=== PATIENT | male | born 1970 | race Two or more races ===

== ENCOUNTER 2017-10-03 11:55 | Emergency (ER) | payer SELFPAY ==
[2017-10-03] MEDS ORDERED: Ondansetron 4 MG/2 ML SDV IVPUSH ONE (12:02)
[2017-10-03] MEDS ORDERED: Morphine 2 MG/ML Syringe IVPUSH ONE (12:03)
[2017-10-03 12:37] LABS: CHLORIDE,CL 105 mmol/L (98-107); SODIUM,NA 143 mmol/L (136-148)
[2017-10-03] MEDS ORDERED: Pantoprazole 40 MG Vial IVPUSH ONE (14:00)
[2017-10-03] MEDS ORDERED: Alum Hydrox/Mag Hydrox/Simeth 15 ML, Metoclopramide 5 MG, Lidocaine 2% 5 ML PO ONE ×3 (14:01)
--- NOTE | 2017-10-03 14:31 | EDM.PDOC ---
ED HPI GENERAL MEDICAL PROBLEM - General Chief Complaint: Abdominal Pain Stated Complaint: CHEST PAIN AND HARD TO BREATHE Time Seen by Provider: 10/03/17 11:55 Source of Information: Reports: Patient, Family History Limitations: Reports: No Limitations - History of Present Illness INITIAL COMMENTS - FREE TEXT/NARRATIVE: HISTORY AND PHYSICAL: History of present illness: [Patient is brought to the emergency room by his son with complaints of sudden onset epigastric pain. Patient is primarily Telugu-speaking but he does understand some [place]an and his son serves as an outside upholsterer. Pain began approximately 10 minutes prior to arrival in the emergency room. He describes the pain as being in his upper abdomen, and as a sharp shooting pain and as a "tearing" sensation. He denies any radiation of the pain into his chest lower abdomen flank and back. He is otherwise well and denies any medical conditions. He checked his blood pressure couple of weeks ago at a local store and found it to be mildly elevated. He does not remember the reading. No history of hypertension or prescribed medications for his symptoms. The pain has been constant, and increases position changes and increased abdominal pressure. Denies blood in his stools no difficulty urinating, constipation or diarrhea. He was otherwise in his normal state of good health prior to these symptoms beginning. Reports a history of stomach ulcer. Patient and son are in the [facility] and will be returning to [place] tomorrow. Review of systems: As per history of present illness and below otherwise all systems reviewed and negative. Past medical history: As per history of present illness and as reviewed below otherwise noncontributory. Surgical history: As per history of present illness and as reviewed below otherwise noncontributory. Social history: No reported history of drug or alcohol abuse. Family history: As per history of present illness and as reviewed below otherwise noncontributory. Physical exam: HEENT: Atraumatic, normocephalic. Mucous membranes are pink and moist. Neck supple, no lymphadenopathy. Lungs: Clear to auscultation, breath sounds equal bilaterally, chest nontender with palpation. Heart: S1S2, regular rate and rhythm. No murmur gallop click or rub. Abdomen: Bowel sounds are normoactive throughout. Soft, nondistended. Patient is tender over the epigastrium with palpation. Negative for masses, bruit, guarding or rebound. Negative for costovertebral tenderness. Pelvis: Stable nontender. Genitourinary: Deferred. Rectal: Deferred. Extremities: Atraumatic, negative for cords or calf pain. Swelling or some cyanosis. Neurovascular unremarkable. Neuro: Awake, alert, oriented. Motor and sensory unremarkable throughout. Exam nonfocal. Diagnostics: [CBC, CMP, UA, amylase, lipase, EKG, troponin, H Pylori, gallbladder ultrasound] Therapeutics: [MS 2mg IV, Zofran 4mg IV, GI cocktail, Protonix 40 mg] Impression: [H. Pylori infection epigastric pain] Plan: [Ultrasound shows diffuse fatty infiltration of the liver. Normal gallbladder and common bile duct. coffee machine technician reports good visualization of the aorta and no aneurysm present. Normal vasculature. Troponin and UA are negative. White blood cell 12.4, AST 48, ALT 105. H. Pylori test is positive. Referral given to primary care. Rx's given for omeprazole 20mg (#60) si po BID 0 RF's , clarithromycin 500mg (#28) si po BID 0 RF's, metronidazole 500mg (#28) sig : 1 po BID 0 RF's. He is instructed to follow-up with the primary care provider in [place] and to take all antibiotics as prescribed. Strict return precautions are reviewed with patient. He is in agreement with today's plan.] Definitive disposition and diagnosis as appropriate pending reevaluation and review of above. Epigastric Pain Score (Numeric/FACES): 7 - Related Data Allergies Allergy/AdvReac Type Severity Reaction Status Date / Time No Known Allergies Allergy Verified 10/03/17 12:05 Home Meds: Home Meds . [No Known Home Meds] 10/03/17 [History] Past Medical History Gastrointestinal History: Reports: Other (See Below) Other Gastrointestinal History: colitis Musculoskeletal History: Reports: Back Pain, Chronic - Infectious Disease History Infectious Disease History: Reports: None Social & Family History - Family History Family Medical History: Noncontributory - Tobacco Use Smoking Status *Q: Never Smoker - Caffeine Use Caffeine Use: Reports: Coffee, Soda - Alcohol Use Date of Last Drink: 04/28/04 - Recreational Drug Use Recreational Drug Use: No ED ROS GENERAL - Review of Systems Review Of Systems: ROS reveals no pertinent complaints other than HPI. ED EXAM, GI/ABD - Physical Exam Exam: See Below Course - Vital Signs Last Recorded V/S: Last Vital Signs Temp 98.3 F 10/03/17 15:58 Pulse 62 10/03/17 15:58 Resp 15 10/03/17 15:58 BP 115/71 10/03/17 15:58 Pulse Ox 95 10/03/17 15:58 - Orders/Labs/Meds Orders: Active Orders 24 hr Category Date Time Status UA W/MICROSCOPIC [URIN] Stat Lab 10/03/17 13:05 Ordered Labs: Laboratory Tests 10/03/17 10/03/17 10/03/17 Range/Units 11:58 11:58 11:58 WBC 12.44 H (4.0-11.0) K/uL RBC 5.41 (4.50-5.90) M/uL Hgb 15.4 (13.0-17.0) g/dL Hct 46.0 (38.0-50.0) % MCV 85.0 (80.0-98.0) fL MCH 28.5 (27.0-32.0) pg MCHC 33.5 (31.0-37.0) g/dL RDW Std Deviation 41.9 (28.0-62.0) fl RDW Coeff of Tiffany 14 (11.0-15.0) % Plt Count 226 (150-400) K/uL MPV 11.60 (7.40-12.00) fL Neut % (Auto) 54.2 (48.0-80.0) % Lymph % (Auto) 36.1 (16.0-40.0) % [place] % (Auto) 7.9 (0.0-15.0) % Eos % (Auto) 1.5 (0.0-7.0) % Baso % (Auto) 0.3 (0.0-1.5) % Neut # (Auto) 6.7 H (1.4-5.7) K/uL Lymph # (Auto) 4.5 H (0.6-2.4) K/uL [place] # (Auto) 1.0 H (0.0-0.8) K/uL Eos # (Auto) 0.2 (0.0-0.7) K/uL Baso # (Auto) 0.0 (0.0-0.1) K/uL Nucleated RBC % 0.0 /100WBC Nucleated RBCs # 0 K/uL Sodium 143 (136-148) mmol/L Potassium 3.5 (3.5-5.1) mmol/L Chloride 105 (98-107) mmol/L Carbon Dioxide 28.7 (21.0-32.0) mmol/L BUN 20 H (7.0-18.0) mg/dL Creatinine 1.0 (0.8-1.3) mg/dL Est Cr Clr Drug Dosing TNP Estimated GFR (MDRD) > 60.0 ml/min Glucose 143 H (74-106) mg/dL Calcium 8.8 (8.5-10.1) mg/dL Total Bilirubin 0.4 (0.2-1.0) mg/dL AST 48 H (15-37) IU/L ALT 105 H (14-63) IU/L Alkaline Phosphatase 111 (46-116) U/L Troponin I (0.000-0.056) ng/mL Total Protein 7.3 (6.4-8.2) g/dL Albumin 3.8 (3.4-5.0) g/dL Globulin 3.5 (2.0-3.5) g/dL Albumin/Globulin Ratio 1.1 L (1.3-2.8) Amylase 64 (25-115) U/L Lipase 179 (73-393) U/L Urine Color Urine Appearance Urine pH (5.0-8.0) Ur Specific [place] (1.001-1.035) Urine Protein (NEGATIVE) mg/dL Urine Glucose (UA) (NEGATIVE) mg/dL Urine Ketones (NEGATIVE) mg/dL Urine Occult Blood (NEGATIVE) Urine Nitrite (NEGATIVE) Urine Bilirubin (NEGATIVE) Urine Urobilinogen (<2.0) EU/dL Ur Leukocyte Esterase (NEGATIVE) Urine RBC (0-2/HPF) Urine WBC (0-5/HPF) Ur Epithelial Cells (NONE-FEW) Amorphous Sediment (NEGATIVE) Urine Bacteria (NEGATIVE) H. pylori IgG Antibody POSITIVE H (NEG) 10/03/17 10/03/17 Range/Units 12:27 13:05 WBC (4.0-11.0) K/uL RBC (4.50-5.90) M/uL Hgb (13.0-17.0) g/dL Hct (38.0-50.0) % MCV (80.0-98.0) fL MCH (27.0-32.0) pg MCHC (31.0-37.0) g/dL RDW Std Deviation (28.0-62.0) fl RDW Coeff of Tiffany (11.0-15.0) % Plt Count (150-400) K/uL MPV (7.40-12.00) fL Neut % (Auto) (48.0-80.0) % Lymph % (Auto) (16.0-40.0) % [place] % (Auto) (0.0-15.0) % Eos % (Auto) (0.0-7.0) % Baso % (Auto) (0.0-1.5) % Neut # (Auto) (1.4-5.7) K/uL Lymph # (Auto) (0.6-2.4) K/uL [place] # (Auto) (0.0-0.8) K/uL Eos # (Auto) (0.0-0.7) K/uL Baso # (Auto) (0.0-0.1) K/uL Nucleated RBC % /100WBC Nucleated RBCs # K/uL Sodium (136-148) mmol/L Potassium (3.5-5.1) mmol/L Chloride (98-107) mmol/L Carbon Dioxide (21.0-32.0) mmol/L BUN (7.0-18.0) mg/dL Creatinine (0.8-1.3) mg/dL Est Cr Clr Drug Dosing Estimated GFR (MDRD) ml/min Glucose (74-106) mg/dL Calcium (8.5-10.1) mg/dL Total Bilirubin (0.2-1.0) mg/dL AST (15-37) IU/L ALT (14-63) IU/L Alkaline Phosphatase (46-116) U/L Troponin I < 0.050 (0.000-0.056) ng/mL Total Protein (6.4-8.2) g/dL Albumin (3.4-5.0) g/dL Globulin (2.0-3.5) g/dL Albumin/Globulin Ratio (1.3-2.8) Amylase (25-115) U/L Lipase (73-393) U/L Urine Color YELLOW Urine Appearance CLEAR Urine pH 6.0 (5.0-8.0) Ur Specific [place] 1.025 (1.001-1.035) Urine Protein NEGATIVE (NEGATIVE) mg/dL Urine Glucose (UA) NEGATIVE (NEGATIVE) mg/dL Urine Ketones NEGATIVE (NEGATIVE) mg/dL Urine Occult Blood NEGATIVE (NEGATIVE) Urine Nitrite NEGATIVE (NEGATIVE) Urine Bilirubin NEGATIVE (NEGATIVE) Urine Urobilinogen 0.2 (<2.0) EU/dL Ur Leukocyte Esterase NEGATIVE (NEGATIVE) Urine RBC NONE SEEN (0-2/HPF) Urine WBC 0-1 (0-5/HPF) Ur Epithelial Cells RARE (NONE-FEW) Amorphous Sediment RARE (NEGATIVE) Urine Bacteria RARE (NEGATIVE) H. pylori IgG Antibody (NEG) Meds: Medications Discontinued Medications Generic Name Dose Route Start Last Admin Trade Name Freq PRN Reason Stop Dose Admin Al Hydroxide/Mg Hydroxide 15 0 ml 10/03/17 14:01 10/03/17 14:10 ml/ Metoclopramide HCl 5 mg/ PO 10/03/17 14:02 15 each Lidocaine HCl 5 ml ONETIME ONE Administration Morphine Sulfate 2 mg 10/03/17 12:03 10/03/17 12:06 Morphine IVPUSH 10/03/17 12:04 2 mg ONETIME ONE Administration Ondansetron HCl 4 mg 10/03/17 12:02 10/03/17 12:06 Zofran IVPUSH 10/03/17 12:03 4 mg ONETIME ONE Administration Pantoprazole Sodium 40 mg 10/03/17 14:00 10/03/17 14:10 Protonix Iv IVPUSH 10/03/17 14:01 40 mg NOW ONE Administration Departure - Departure Time of Disposition: 15:40 Disposition: Home, Self-Care 01 Condition: Good Clinical Impression: H. pylori infection - Discharge Information Instructions: Helicobacter Pylori Infection Referrals: PCP,Not In Area [Primary Care Provider] - Forms: ED Department Discharge Additional Instructions: The following information is given to patients seen in the emergency department who are being discharged to home. This information is to outline your options for follow-up care. We provide all patients seen in our emergency department with a follow-up referral. The need for follow-up, as well as the timing and circumstances, are variable depending upon the specifics of your emergency department visit. If you don't have a primary care physician on staff, we will provide you with a referral. We always advise you to contact your personal physician following an emergency department visit to inform them of the circumstance of the visit and for follow-up with them and/or the need for any referrals to a consulting specialist. The emergency department will also refer you to a specialist when appropriate. This referral assures that you have the opportunity for follow-up care with a specialist. All of these measure are taken in an effort to provide you with optimal care, which includes your follow-up. Under all circumstances we always encourage you to contact your private physician who remains a resource for coordinating your care. When calling for follow-up care, please make the office aware that this follow-up is from your recent emergency room visit. If for any reason you are refused follow-up, please contact the [facility] emergency department at and asked to speak to the emergency department charge nurse. [facility] [address] [place] [id number] Establish care with a local primary care provider at the clinic listed above. Follow-up there in one week. Take all medications as prescribed. Return to ER as needed as discussed. - My Orders Last 24 Hours: My Active Orders 10/03/17 13:05 UA W/MICROSCOPIC [URIN] Stat - Assessment/Plan Last 24 Hours: My Active Orders 10/03/17 13:05 UA W/MICROSCOPIC [URIN] Stat
--- NOTE | 2017-10-03 15:57 | US ---
EXAM DATE: 10/03/17 PATIENT'S AGE: 47 Patient: SHAHIDA RICE Facility: [place], [place] Site . Site : [id number] Study: US Abdomen [id number] 1:11:41 PM Ordering Physician: Doctor Mcdonnell Final Report: INDICATION: Pain TECHNIQUE: Ultrasound abdomen limited. Sonographic images of the right upper quadrant were obtained using degroot-scale and color Doppler images. COMPARISON: None FINDINGS: Liver: Diffuse fatty infiltration of the liver. No masses. No intrahepatic biliary dilatation. Gallbladder: No stones or sludge. Normal wall thickness. No pericholecystic fluid. Common bile duct: 5 mm. Pancreas: Normal. The pancreatic tail is not well seen. Right kidney: 9.3 cm. Normal echotexture and cortex. No masses, stones, or hydronephrosis. Vasculature: Not well visualized. IMPRESSION: Diffuse fatty infiltration of the liver. Sonographically normal gallbladder and common bile duct. Dictated by Urbano Philippe MD @ 10/03/2017 1:40:33 PM Dictated by: Urbano Philippe MD @ 10/03/2017 13:40:40 (Electronic Signature) Report Signed by Proxy. ARELY
== END 2017-10-03 16:01 | disposition home or self-care (01) ==
LOC: MW.ED 11:55
DX: B96.81 Helicobacter pylori [H. pylori] as the cause of diseases classified elsewhere (principal)
CPT/HCPCS: 36415; 76705; 80053; 81001; 82150; 83690; 84484; 85025; 86677; 93005; 96374; 96375; 99284; A9270; C9113; J2270; J2405; 99283